=== PATIENT | male | born 1970 | race Caucasian/White ===

== ENCOUNTER 2021-11-08 07:57 | Emergency (ER) | payer SELFPAY ==
[~2021-11-08] VITALS: Ht 172.7 cm; Wt 75.0 kg
[2021-11-08 08:03] VITALS: BP 145/88
[2021-11-08] MEDS ORDERED: IBUP-2029 MT (08:31)
== END 2021-11-08 09:37 | disposition home or self-care (01) ==
LOC: ER 07:57
DX: M75.32 Calcific tendinitis of left shoulder (principal); R03.0 Elevated blood-pressure reading, without diagnosis of hypertension
CPT/HCPCS: 73030; 99283